=== PATIENT | female | born 1970 | race Caucasian/White ===

== ENCOUNTER → 2021-12-21 | Outpatient (CLI) | payer BC ==
--- NOTE | 2021-12-22 11:26 | MR ---
EXAMINATION TYPE: MR lumbar spine wo con DATE OF EXAM: 12/21/2021 COMPARISON: 05/28/2020 CT outside film HISTORY: Low back pain into left side CONTRAST: 0 mL intravenous Gadavist. TECHNIQUE: Multiplanar, multisequence images of the lumbar spine were acquired. FINDINGS: Cord terminates at the T12-L1 level. L5-S1: There is a large broad-based disc herniation with mild anterior thecal sac contact at this lev el. This is greater in the left paracentral region which may have exiting nerve root contact. Correla te with radicular symptoms. AP spinal canal stenosis is not present. Facet hypertrophy is present. Ne ural foramen are patent. Disc desiccation is present. L4-L5: Disc desiccation is present. Disc height is preserved. Mild disc bulge may be present with ant erior thecal sac contact. Facet hypertrophy with mild ligamentum flavum laxity is present in the post erior lateral thecal sac contact. No spinal canal stenosis or neural foraminal stenosis is present. D isc desiccation is present. L3-L4: Disc bulge is present with anterior thecal sac flattening. No focal disc herniation is evident . Disc desiccation is present. Facet hypertrophy is present. No spinal canal stenosis or neural josé inal stenosis is present. L2-L3: No significant disc bulge or disc herniation. No spinal canal stenosis. No foraminal stenosi s. . L1-L2: No significant disc bulge or disc herniation. No spinal canal stenosis. No foraminal stenosi s. . T12-L1: No significant disc bulge or disc herniation. No spinal canal stenosis. No foraminal stenos is. . IMPRESSION: 1. Large disc herniation L5-S1 may have contact with the exiting left S1 nerve root. Clinical correla tion with the radicular symptoms is recommended. 2. Disc desiccation L3-4 through L5-S1. 3. Minimal disc bulges L3-4 and L4-5.
== END | disposition home or self-care (01) ==
LOC: RADMRIMAIN 13:15
PROVIDERS: ATTEND Orthopaedic Surgery
DX: M47.27 Other spondylosis with radiculopathy, lumbosacral region (principal); M51.17 Intervertebral disc disorders with radiculopathy, lumbosacral region; M48.061 Spinal stenosis, lumbar region without neurogenic claudication
CPT/HCPCS: 72148